=== PATIENT | male | born 1950 | race Caucasian/White ===

== ENCOUNTER 2019-09-12 06:27 | Day surgery (SDC) | payer MEDICARE ==
[~2019-09-12] VITALS: Ht 195.6 cm; Wt 86.9 kg
[2019-09-12] VITALS (10 sets, daily range): BP systolic 129–142; BP diastolic 67–92
[2019-09-12] MEDS ORDERED: diphenhydrAMINE 25mg capsule PO PRN (06:45)
[2019-09-12] MEDS ORDERED: LORazepam 0.5 MG tablet PO PRN (06:45)
[2019-09-12] MEDS ORDERED: normal saline 1,000 ML IV SCH (06:45)
[2019-09-12] MEDS ORDERED: FURO20TA4 PO (06:55)
[2019-09-12] MEDS ORDERED: OMEP-50 PO (06:55)
[2019-09-12] MEDS ORDERED: SACU1TAB PO (06:55)
[2019-09-12] MEDS ORDERED: CARV6.253 PO (06:55)
[2019-09-12] MEDS ORDERED: LORA-641 (07:00)
[2019-09-12] MEDS ORDERED: ZOLP5TAB8 PO (07:00)
[2019-09-12] MEDS ORDERED: PSYL3.4P5 PO (07:00)
[2019-09-12] MEDS ORDERED: ASPI-611 PO (07:00)
[2019-09-12] MEDS ORDERED: KEN0.1O TP (07:00)
[2019-09-12] MEDS ORDERED: NITR0.4T48 SL (07:00)
[2019-09-12] MEDS ORDERED: TRAV5DRO (07:00)
[2019-09-12 07:24] LABS: BASOPHILS % (AUTO) 0.7 % (0-1); EOSINOPHILS # (AUTO) 0.4 X10'3 (0-0.9); EOSINOPHILS % (AUTO) 5.4 % (0-6); HEMATOCRIT 39.7 % (42.0-52.0); HEMOGLOBIN 13.2 g/dl (14.0-17.9); LYMPHOCYTES # (AUTO) 1.2 X10'3 (1.1-4.8); LYMPHOCYTES % (AUTO) 18.8 % (21-51); MEAN CORPUSCULAR HEMOGLOBIN 29.7 PG (27.0-31.0); MEAN CORPUSCULAR HGB CONC 33.3 g/dL (33.0-36.5); MEAN CORPUSCULAR VOLUME 89.1 FL (78-98); MEAN PLATELET VOLUME 10.5 FL (7.4-10.4); MONOCYTES # (AUTO) 0.7 X10'3 (0-0.9); MONOCYTES % (AUTO) 10.1 % (2-12); NEUTROPHILS # (AUTO) 4.2 X10'3 (1.8-7.7); PLATELET COUNT 200 X10'3 (140-440); RED BLOOD COUNT 4.46 X10'6 (4.70-6.10); RED CELL DISTRIBUTION WIDTH 13.6 % (11.5-14.5); WHITE BLOOD COUNT 6.5 X10'3 (4.5-11.0)
[2019-09-12 07:27] LABS: ALBUMIN 3.4 G/DL (3.4-5.0); ANION GAP 10 (8-16); BLOOD UREA NITROGEN 17 MG/DL (7-18); BUN/CREATININE RATIO 20.2 (5.4-32.0); CALCIUM 9.1 MG/DL (8.5-10.1); CHLORIDE 100 MMOL/L (99-107); CREATININE 0.84 MG/DL (0.60-1.10); GLUCOSE 107 MG/DL (70-104); POTASSIUM 4.2 MMOL/L (3.5-5.1); SODIUM 136 MMOL/L (135-145); TOTAL CARBON DIOXIDE 26.3 MMOL/L (24-32); eGFR 90 ML/MIN
[2019-09-12] MEDS ORDERED: midazolam 2 mg/2 ml injection ONE (13:10)
[2019-09-12] MEDS ORDERED: fentaNYL/PF 50MCG/1 ML 2ML syringe ONE (13:10)
[2019-09-12] MEDS ORDERED: LIDOcaine 1% (10mg/ml)w/preservative injection 20ml MDV ONE (13:11)
[2019-09-12] MEDS ORDERED: iohexol 350MG/ML 100ml bottle IV ONE (13:11)
[2019-09-12] MEDS ORDERED: ondansetron/PF 4mg/2ml inj IV PRN (14:25)
[2019-09-12] MEDS ORDERED: acetaminophen 325mg tablet PO PRN (14:25)
[2019-09-12] MEDS ORDERED: HYDROcodone/acetaminophen 10/325mg tab PO PRN (14:25)
[2019-09-12] MEDS ORDERED: OXAZEpam 15mg capsule PO PRN (14:25)
[2019-09-12] MEDS ORDERED: proCHLORperazine 10 MG/2 ml inj IV PRN (14:25)
[2019-09-12] MEDS ORDERED: HYDROcodone/acetaminophen 5mg/325mg tablet PO PRN (14:25)
== END 2019-09-12 17:00 | disposition home or self-care (01) ==
LOC: SSTAY O 06:27
PROVIDERS: ATTEND Internal Medicine Interventional Cardiology
DX: R94.39 Abnormal result of other cardiovascular function study (principal); I25.10 Atherosclerotic heart disease of native coronary artery without angina pectoris; I11.0 Hypertensive heart disease with heart failure; I50.9 Heart failure, unspecified; E78.5 Hyperlipidemia, unspecified; I42.9 Cardiomyopathy, unspecified; K21.9 Gastro-esophageal reflux disease without esophagitis; Z79.01 Long term (current) use of anticoagulants; Z79.899 Other long term (current) drug therapy; Z79.82 Long term (current) use of aspirin; Z85.038 Personal history of other malignant neoplasm of large intestine; Z87.891 Personal history of nicotine dependence
CPT/HCPCS: 36415; 80048; 85025; 85610; 93005; 93458; 99152; C1760; C1769; C1894; J1644; J2001; J2250; J3010; J7030; Q0163; Q9967; 99153; A4620; A6258

== ENCOUNTER 2019-10-10 05:28 | Day surgery (SDC) | payer MEDICARE, OTHER ==
[~2019-10-10] VITALS: Ht 193 cm; Wt 85.0 kg
[~2019-10-10 05:28] MED LIST: ASPI-611 PO; CARV6.253 PO; FURO20TA4 PO; KEN0.1O TP; LORA-641; NITR0.4T48 SL; OMEP-50 PO; PSYL3.4P5 PO; SACU1TAB PO; TRAV5DRO; ZOLP5TAB8 PO
--- NOTE | 2019-10-10 05:50 | NUR ---
Case cancelled per MD
[2019-10-10] MEDS ORDERED: diphenhydrAMINE 25mg capsule PO PRN (06:00)
[2019-10-10] MEDS ORDERED: normal saline 1,000 ML IV SCH (06:00)
[2019-10-10] MEDS ORDERED: LORazepam 0.5 MG tablet PO PRN (06:00)
[2019-10-10] MEDS ORDERED: LIDOcaine/PRILOcaine 5gm cream TP ONE (06:00)
[2019-10-10] MEDS ORDERED: midazolam 2 mg/2 ml injection ONE (06:06)
[2019-10-10] MEDS ORDERED: iohexol 350MG/ML 100ml bottle IV ONE (06:06)
[2019-10-10] MEDS ORDERED: fentaNYL/PF 50MCG/1 ML 2ML syringe ONE (06:06)
[2019-10-10] MEDS ORDERED: LIDOcaine 1% (10mg/ml)w/preservative injection 20ml MDV ONE (06:06)
== END 2019-10-10 06:25 | disposition home or self-care (01) ==
LOC: SSTAY O 05:28
PROVIDERS: ATTEND Student in an Organized Health Care Education/Training Program
DX: I25.110 Atherosclerotic heart disease of native coronary artery with unstable angina pectoris (principal); Z53.8 Procedure and treatment not carried out for other reasons; I11.0 Hypertensive heart disease with heart failure; I50.9 Heart failure, unspecified; I25.5 Ischemic cardiomyopathy; I48.91 Unspecified atrial fibrillation; Z79.899 Other long term (current) drug therapy; Z79.82 Long term (current) use of aspirin; E78.5 Hyperlipidemia, unspecified; G25.0 Essential tremor; K21.9 Gastro-esophageal reflux disease without esophagitis; Z85.038 Personal history of other malignant neoplasm of large intestine
CPT/HCPCS: J1644; J2001; J2250; J3010; Q9967

== ENCOUNTER 2019-10-13 14:15 | Day surgery (SDC) | payer MEDICARE, OTHER ==
[~2019-10-13] VITALS: Ht 190.5 cm; Wt 85.4 kg
[~2019-10-13 14:15] MED LIST changes: -TRAV5DRO; +TRAV5DRO EACHEYE
[2019-10-13 14:30] VITALS: BP 151/82
[2019-10-13] MEDS ORDERED: LORazepam 0.5 MG tablet PO PRN (14:35)
[2019-10-13] MEDS ORDERED: diphenhydrAMINE 25mg capsule PO PRN (14:35)
[2019-10-13] MEDS ORDERED: POLY454P5 (14:58)
[2019-10-13] MEDS: normal saline 1,000 ML IV SCH ×2 (15:00→23:50)
[2019-10-13] MEDS ORDERED: NAPR-996 PO (19:02)
[2019-10-13] MEDS ORDERED: VALS40TA2 PO (19:02)
[2019-10-13] MEDS ORDERED: APIX5TAB3 PO (19:02)
[2019-10-13 19:38] VITALS: BP 132/62
--- NOTE | 2019-10-13 19:40 | NUR ---
pt transferred to pcu room 3021 in stable condition. pt oriented to room, call light in reach, bed low, locked. report given to REYMUNDO Browning at bedside. all belongings sent with pt.
--- NOTE | 2019-10-13 19:41 | NUR ---
Patient in room PCU 3021. I have received report from Leanne-REYMUNDO from short stay, and had the opportunity to ask questions and assume patient care. The patient supposed to get the hearth cath done, but his procedure postponed to 10/14/19. The patient is prepped, Consent is singed. Will be NPO after midnight. Patient is resting, not in any distress. No chest pain. The tele monitoring shows sinus rhythm.
[2019-10-13 22:00] VITALS: BP 109/63
[2019-10-14] VITALS (12 sets, daily range): BP systolic 104–145; BP diastolic 55–86
--- NOTE | 2019-10-14 06:18 | NUR ---
Patient in room PCU 3021. I have received report from REYMUNDO Browning and had the opportunity to ask questions and assume patient care.
--- NOTE | 2019-10-14 06:20 | NUR ---
Problems reprioritized. Patient report given to Odell, questions answered & plan of care reviewed with .
[2019-10-14] MEDS ORDERED: midazolam 2 mg/2 ml injection ONE ×2 (06:51→07:55)
[2019-10-14] MEDS ORDERED: fentaNYL/PF 50MCG/1 ML 2ML syringe ONE (06:51)
[2019-10-14] MEDS ORDERED: LIDOcaine 1% (10mg/ml)w/preservative injection 20ml MDV ONE (06:51)
[2019-10-14] MEDS ORDERED: iohexol 350MG/ML 100ml bottle IV ONE ×2 (06:51→07:45)
--- NOTE | 2019-10-14 07:14 | NUR ---
Pt to cath procedure
[2019-10-14] MEDS ORDERED: heparin 1,000unit/ml 10ml vial 10 ML ONE (07:32)
[2019-10-14] MEDS ORDERED: iohexol 350 MG/ML 50ML vial IV ONE (08:04)
[2019-10-14] MEDS ORDERED: ticagrelor 90mg tablet ONE (08:07)
--- NOTE | 2019-10-14 08:30 | NUR ---
Received report from REYMUNDO Alvares regarding post-op cath. Pt stable and received two stents in the LAD via the right femoral approach. Pt instructed not to flex right hip and educated about the possible risks and b Addendum: 10/14/19 at 0924 by Eunice Fernández RN Received report from REYMUNDO Alvares regarding post-op cath. Pt stable and received two stents in the LAD via the right femoral approach. Pt arrived on unit via gurney. Pt instructed not to flex right hip and educated about the possible risks and benefits. No signs of bleed at site/retroperitoneal area. Pulses present, normal in color. Reports cramping pain in back/left leg per pt and REYMUNDO Alvares. Pt resting comfortably in bed in reverse Trendelenberg position and in no apparent distress. Provided call light. Will continue to monitor. Initial vitals are as follows: 145/82-97%-64-18-7/10pain.
[2019-10-14] MEDS ORDERED: ondansetron/PF 4mg/2ml inj IV PRN (10:25)
[2019-10-14] MEDS ORDERED: proCHLORperazine 10 MG/2 ml inj IV PRN (10:25)
[2019-10-14] MEDS ORDERED: HYDROcodone/acetaminophen 10/325mg tab PO PRN (10:25)
[2019-10-14] MEDS ORDERED: HYDROcodone/acetaminophen 5mg/325mg tablet PO PRN (10:25)
[2019-10-14] MEDS ORDERED: OXAZEpam 15mg capsule PO PRN (10:25)
[2019-10-14] MEDS ORDERED: triamcinolone acet 0.1% cream 15gm TP PRN (10:30)
[2019-10-14] MEDS ORDERED: nitroGLYCERIN 0.4mg SUBLingual tab SL PRN (10:30)
[2019-10-14] MEDS ORDERED: zolpidem 5mg tablet PO PRN (10:30)
[2019-10-14] MEDS ORDERED: ATOR40TA PO (12:02)
[2019-10-14] MEDS ORDERED: TICA90TA PO (12:02)
[2019-10-14] MEDS ORDERED: psyllium seed 3.4 gm packet PO SCH (13:00)
--- NOTE | 2019-10-14 13:05 | NUR ---
[facility] called. prescriptions given.
--- NOTE | 2019-10-14 13:58 | NUR ---
Pt stable for discharge per MD order. Provided discharge instructions and education. Answered any questions/concerns patient may be. New medications called to [facility] pharmacy. Tele monitor removed. PIV removed, cannula intact. Belongings sent with patient. Pt wheeled down to lobby for to pickle solution maker.
[2019-10-14] MEDS ORDERED: ticagrelor 90mg tablet PO SCH (20:00)
[2019-10-14] MEDS ORDERED: sacubitril/valsartan 24mg-26mg tablet PO SCH (20:00)
[2019-10-14] MEDS ORDERED: carvedilol 6.25mg tablet PO SCH (20:00)
[2019-10-15] MEDS ORDERED: latanoprost 0.005% 2.5ml ophthalmic drops EACHEYE SCH (08:00)
[2019-10-15] MEDS ORDERED: aspirin 81mg tablet.DR PO SCH (08:00)
[2019-10-15] MEDS ORDERED: pantoprazole 40mg Tablet.DR PO SCH (08:00)
[2019-10-15] MEDS ORDERED: non-formulary drug (Aspirin (Aspir 81) 1 TAB) PO SCH (08:00)
[2019-10-15] MEDS ORDERED: furosemide 20MG tablet PO SCH (08:00)
== END 2019-10-14 13:10 | disposition home or self-care (01) ==
LOC: SSTAY O 14:15 → PCU 3S 20:23 → SSTAY O 10-14 13:10
PROVIDERS: ATTEND Student in an Organized Health Care Education/Training Program
DX: I25.110 Atherosclerotic heart disease of native coronary artery with unstable angina pectoris (principal); I11.0 Hypertensive heart disease with heart failure; I48.91 Unspecified atrial fibrillation; E78.5 Hyperlipidemia, unspecified; I42.9 Cardiomyopathy, unspecified; K21.9 Gastro-esophageal reflux disease without esophagitis; Z85.038 Personal history of other malignant neoplasm of large intestine; Z79.899 Other long term (current) drug therapy; Z87.891 Personal history of nicotine dependence
CPT/HCPCS: 87081; 93005; 99152; 99153; C1725; C1751; C1760; C1769; C1874; C1894; C9600; C9601; J1644; J2001; J2250; J3010; J7030; Q0163; Q9967; A4620; A6258; G0378

== ENCOUNTER 2024-07-10 05:34 | Day surgery (SDC) | payer MEDICARE ==
[2024-07-04 15:44] LABS: BASOPHILS # (AUTO) 0.1 X10'3 (0-0.2); EOSINOPHILS # (AUTO) 0.3 X10'3 (0-0.9); EOSINOPHILS % (AUTO) 5.5 % (0-6); LYMPHOCYTES # (AUTO) 1.5 X10'3 (1.1-4.8); LYMPHOCYTES % (AUTO) 24.8 % (21-51); MEAN CORPUSCULAR HEMOGLOBIN 32.1 PG (27.0-31.0); MEAN CORPUSCULAR HGB CONC 34.2 g/dL (33.0-36.5); MEAN CORPUSCULAR VOLUME 93.8 FL (78-98); MEAN PLATELET VOLUME 10.2 FL (7.4-10.4); MONOCYTES # (AUTO) 0.7 X10'3 (0-0.9); MONOCYTES % (AUTO) 10.7 % (2-12); NEUTROPHILS # (AUTO) 3.6 X10'3 (1.8-7.7); PRE OP HEMATOCRIT 39.2 % (42.0-52.0); PRE OP HEMOGLOBIN 13.4 g/dL (14.0-17.9); PRE OP PLATELET COUNT 139 X10'3 (140-440); PRE OP WHITE BLOOD COUNT 6.1 10'3 (4.8-10.8); RED BLOOD COUNT 4.18 X10'6 (4.70-6.10); RED CELL DISTRIBUTION WIDTH 12.9 % (11.5-14.5)
--- NOTE | 2024-07-04 15:45 | ELECTROCARDIOGRAPH REPORT ---
[facility] Test Date: 2024-07-04 Test Time: 15:41:23 Pat Name: HAILEY MCDONOUGH Department: [facility]-PRE-OP Patient ID: [facility]-[id number] Room: Gender: M [employer]: ALLIE : 1950 Requested By: AMY MERCADO Order Number: [id number] Reading MD: Dr. DOLORES Quinonez Measurements Intervals [place] Rate: 60 P: 57 [place]: 174 QRS: -58 QRSD: 153 T: 79 QT: 481 QTc: 481 Interpretive Statements Atrial-ventricular dual-paced rhythm No further analysis attempted due to paced rhythm Electronically Signed On 07-04-2024 17:36:[address] DOLORES Quinonez Please click the below link to view image of tracing.
[2024-07-04 16:02] LABS: ALBUMIN 3.9 G/DL (3.4-5.0); ALBUMIN/GLOBULIN RATIO 1.3 (1.1-1.5); ALKALINE PHOSPHATASE 90 IU/L (46-116); BLOOD UREA NITROGEN 17 MG/DL (7-18); BUN/CREATININE RATIO 20.2 (10.0-20.0); CALCIUM 8.6 MG/DL (8.5-10.1); CHLORIDE 99 MMOL/L (99-107); CREATININE 0.84 MG/DL (0.60-1.10); PRE OP ALT 36 U/L (30-65); PRE OP ANION GAP 5 (8-16); PRE OP AST 27 U/L (10-37); PRE OP BILIRUB, TOTAL 1.2 MG/DL (0.0-1.0); PRE OP GLUCOSE 95 MG/DL (70-104); PRE OP POTASSIUM 3.9 MMOL/L (3.4-5.1); PRE OP SODIUM 134 MMOL/L (135-145); TOTAL CARBON DIOXIDE 30.4 MMOL/L (24-32); eGFR 89 ML/MIN
[~2024-07-10] VITALS: Ht 193 cm; Wt 88.7 kg
[~2024-07-10 05:34] MED LIST changes: +APIX5TAB3 PO; -ASPI-611 PO; +ATOR-2 PO; +BUPIVAcaine/PF 2.5mg/ml (0.25%) 10ml vial ONE; +CARV25TA3 PO; -CARV6.253 PO; +CLOP75TA34 PO; +DOCUMENT DATE & TIME OF BETA-BLOCKER PO ONE; +EZET10TA48 PO; -FURO20TA4 PO; -KEN0.1O TP; +LIDOcaine 2% (20mg/ml) 5ml vial ONE; -LORA-641; -OMEP-50 PO; -PSYL3.4P5 PO; -SACU1TAB PO; -TRAV5DRO EACHEYE; +VALS40TA2 PO; -ZOLP5TAB8 PO
[2024-07-10 05:42] VITALS: BP 173/89; PULSE 60; RESP 16; TEMP 97.9; O2SAT 99
[2024-07-10] MEDS: famotidine 20mg tablet PO ONE (06:00)
[2024-07-10] MEDS: ceFAZolin 2gm/dext,iso 50mL 50 ML IV ONE (06:01)
[2024-07-10] MEDS: ringers solution, lacted 1,000 ML IV SCH ×2 (06:02→08:10)
[2024-07-10] MEDS ORDERED: LIDOcaine 2% (20mg/ml) 5ml vial ONE (06:50)
[2024-07-10] MEDS ORDERED: LIDOcaine 1% (10mg/ml) 2ml vial ONE (07:03)
[2024-07-10] MEDS ORDERED: fentaNYL/PF 50MCG/1 ML 2ML syringe ONE (07:33)
[2024-07-10] MEDS ORDERED: midazolam 1 mg/ML 2ml injection ONE (07:33)
[2024-07-10] MEDS ORDERED: propofol inj 20 ML IV ONE ×2 (08:06)
[2024-07-10] MEDS ORDERED: LIDOcaine 0.5% (5mg/ml) 50ml vial ONE (08:06)
[2024-07-10] MEDS ORDERED: meperidine/PF 25mg/ml syringe IV PRN (08:10)
[2024-07-10] MEDS ORDERED: morphine 4 MG/ML inj SYRINge IV PRN (08:10)
[2024-07-10] MEDS ORDERED: morphine 2 MG/ML inj. syringe IV PRN (08:10)
[2024-07-10] MEDS ORDERED: hydrALAZINE 20mg/ml inj. IV PRN (08:10)
[2024-07-10] MEDS ORDERED: labetalol 20mg/4ml (5mg/ml) syringe IV PRN (08:10)
[2024-07-10] MEDS ORDERED: proCHLORperazine 10 MG/2 ml inj IV PRN (08:10)
[2024-07-10] MEDS ORDERED: ketorolac trometh 15mg/ml vial 15 MG/ML ML IV ONE (08:10)
[2024-07-10] MEDS ORDERED: acetaminophen 1,000mg/100ml IV 100 ML IV PRN (08:10)
[2024-07-10] MEDS ORDERED: ondansetron/PF 4mg/2ml inj IV PRN (08:10)
[2024-07-10] MEDS ORDERED: HYDROmorphone/PF 0.2 MG/ML SYRINGE IV PRN ×2 (08:10)
[2024-07-10 08:21] VITALS: BP 144/76; PULSE 60; RESP 14; O2SAT 98
[2024-07-10 08:30] VITALS: BP 159/86; PULSE 60; RESP 12; O2SAT 100
[2024-07-10 08:40] VITALS: BP 173/95; PULSE 60; RESP 12; O2SAT 99
[2024-07-10 08:45] VITALS: BP 179/86; PULSE 60; RESP 12; O2SAT 99
--- NOTE | 2024-07-10 10:31 | OPERATIVE REPORT ---
Operative Report Providers to ~ Date of Procedure: Jul 10, 2024 Pre-Operative Diagnosis: Left thumb carpometacarpal joint arthritis Post-Operative Diagnosis SAME as PRE-Op Procedure Performed Left thumb ligament reconstruction tendon interposition arthroplasty Surgeon: Ayad Zarate MD Group Contract Analyst None Anesthesiologist: Christian Mendoza Type of Anesthesia: Regional Findings: Estimated Blood Loss: None Specimen Removed: None Description of Procedure: The patient is a 73-year-old man with a fairly significant thumb arthritis refractory to nonsurgical treatment. Surgery is indicated to relieve symptoms. Risks and benefits were discussed with the patient. Some of the risks particular to the type of procedure being done today include but are not limited to infection, bleeding, nerve or vessel damage, thumb weakness and continued pa in. He agreed to proceed. In the operating room the arm was prepped and draped in usual manner after the block was given. Time-out procedure was observed. An incision was made in the forearm 8 cm proximal to the wrist over the flexor carpi radialis. The tendon was transected at that level and the incision was closed. The 2nd incision was made over the thumb metacarpal curving onto the volar wrist crease the trapezium was then excised and the FCR tendon was passed into the thumb wound. A diagonal tunnel was made in the metacarpal and the tendon was passed through it. It was then pulled back and sutured to itself into the periosteum using FiberWire suture. The remainder was placed in the open space as an anchovy interposition graft. The capsule was then closed over the graft and the skin was closed in layers. Marcaine was injected and sterile dressing was applied along with a splint. The tourniquet was released the hand perfused well. The patient was taken to the recovery room in stable condition and tolerated the procedure well. AYAD ZARATE Jr., MD Jul 10, 2024 10:31
== END 2024-07-10 09:01 | disposition home or self-care (01) ==
LOC: PRE-OP 05:34
PROVIDERS: ATTEND Orthopaedic Surgery Hand Surgery
DX: M18.12 Unilateral primary osteoarthritis of first carpometacarpal joint, left hand (principal); Z79.899 Other long term (current) drug therapy; I25.10 Atherosclerotic heart disease of native coronary artery without angina pectoris; I42.9 Cardiomyopathy, unspecified; I48.91 Unspecified atrial fibrillation; Z87.891 Personal history of nicotine dependence; Z90.49 Acquired absence of other specified parts of digestive tract; Z98.890 Other specified postprocedural states; Z79.01 Long term (current) use of anticoagulants; Z72.89 Other problems related to lifestyle
CPT/HCPCS: 25312; 25447; 36415; 80053; 82948; 85025; 93005; A4215; A4618; A6449; A7000; J0690; J2003; J2175; J2250; J2704; J3010; J3490; J7030; J7120; Z7506; Z7512; Z7610